=== PATIENT | female | born 1955 ===

== ENCOUNTER 2016-02-26 10:18 | Emergency (ER) | payer OTHER ==
[~2016-02-26] VITALS: Ht 160 cm; Wt 96.0 kg
[~2016-02-26 10:18] MED LIST: BACTDS PO; CEPH-443 PO; HYDR-906 PO; LEVO750T25 PO; NAPR-688 PO
[2016-02-26 10:38] VITALS: Ht 160 cm; Wt 96.0 kg
[2016-02-26] MEDS ORDERED: KETOROLAC 15 MG INJ IV STA (11:14)
[2016-02-26 12:01] LABS: BASOPHILS % 0.7 % (0.0-2.0); EOSINOPHILS % 0.6 % (0.0-7.0); HEMATOCRIT 39.4 % (37.0-47.0); HEMOGLOBIN 13.4 g/dl (12.0-16.0); LYMPHOCYTES # 2.7 10^3/ul (0.8-2.9); LYMPHOCYTES % 49.8 % (15.0-51.0); MEAN CORPUSCULAR HEMOGLOBIN 31.6 pg (29.0-33.0); MEAN CORPUSCULAR HGB CONC 34.1 g/dl (32.0-37.0); MEAN CORPUSCULAR VOLUME 92.7 fl (82.0-101.0); MEAN PLATELET VOLUME 8.6 fl (7.4-10.4); MONOCYTE # 0.4 10^3/ul (0.3-0.9); MONOCYTES % 7.8 % (0.0-11.0); NEUTROPHIL # 2.2 10^3/ul (1.6-7.5); NEUTROPHILS % 41.1 % (39.0-77.0); PLATELET COUNT 170 10^3/UL (140-440); RED BLOOD COUNT 4.25 10^6/ul (4.20-5.40); RED CELL DISTRIBUTION WIDTH 13.3 % (11.5-14.5); UNCORRECTED WBC 5.3 10^3/ul (4.8-10.8); WHITE BLOOD COUNT 5.3 10^3/ul (4.8-10.8)
[2016-02-26 12:04] LABS: CONDITION 1
[2016-02-26 12:15] LABS: ALBUMIN 3.9 g/dl (3.3-4.9)
[2016-02-26 12:16] LABS: POTASSIUM 4.2 mmol/L (3.5-5.1)
[2016-02-26 12:18] LABS: ADD UMIC YES; ALBUMIN/GLOBULIN RATIO 0.95; BILIRUBIN,INDIRECT 0.5 mg/dl (0-1.1); BILIRUBIN,TOTAL 0.5 mg/dl (0.2-1.3); CALCIUM 9.4 mg/dl (8.4-10.2); CREATININE 0.6 mg/dl (0.44-1.00); URINE BILIRUBIN (Dip) NEGATIVE (NEGATIVE); URINE BLOOD (Dip) 1+ (NEGATIVE); URINE COLOR LT. YELLOW (YELLOW); URINE GLUCOSE (Dip) NEGATIVE (NEGATIVE); URINE KETONES (Dip) NEGATIVE (NEGATIVE); URINE LEUKOCYTE ESTERASE (Dip) 1+ (NEGATIVE); URINE NITRITE (Dip) NEGATIVE (NEGATIVE); URINE TOTAL PROTEIN (Dip) NEGATIVE (NEGATIVE); URINE UROBILINOGEN (Dip) 0.2 E.U./dL (0.1-1.0)
[2016-02-26 12:43] LABS: URINE RBCS 0-2 /HPF (0)
--- NOTE | 2016-02-26 13:11 | RADRPT ---
PROCEDURE: CT Abdomen and Pelvis without contrast CLINICAL INDICATION: Abdominal pain TECHNIQUE: Transaxial images were obtained through the abdomen and pelvis on a multi-slice scanner without the intravenous contrast administration. no oral contrast had previously been given. Sagitt al and coronal re-formations were subsequently reconstructed. One or more of the following dose reduction techniques were used: - Automated exposure control. - Adjustment of the mA and/or kV according to patient size. - Use of iterative reconstruction technique. Radiation dose: CTDIvol = 21.70 mGy; DLP = 1369.85 mGy-cm. COMPARISON: No prior studies are available for comparison. FINDINGS: Lung bases: A ground-glass infiltrates are seen within the lung bases blurred by respiratory motion artifact. Liver: The liver is grossly normal in size but there is a large left lobe. No focal lesion is ident ified. Gallbladder: Surgical brittany are seen in the gallbladder fossa. Bile ducts: The intra and extrahepatic bile ducts are normal in caliber. Pancreas: Appears normal with no mass or inflammation evident. Spleen: Normal in size with no focal lesion. Adrenals: Normal with no mass identified. Kidneys, ureters and bladder: The kidneys are normal in size and there is no mass, pathological calc ification, or hydronephrosis evident. There is no perinephric stranding. The ureters are normal in c aliber and no ureteroliths are identified. The bladder appears unremarkable. Reproductive organs: Unremarkable. Stomach and bowel: A band is seen circumferentially about the superior gastric fundus but no cathete r or port is identified. Food debris is seen in the remaining stomach. Substantial stool is seen i n the right colon but there is no evidence of bowel obstruction or inflammation. Appendix: There are no findings to suggest appendicitis. Peritoneum: No free intraperitoneal fluid or air is identified. Aorta: Normal in caliber with no aneurysmal dilatation. IVC: Unremarkable. Lymph nodes: No pathologically enlarged nodes are identified. Osseous structures: The osseous elements appear intact. IMPRESSION: 1. The liver is grossly normal in size. There is a prominent left lobe. No focal lesion is identi fied. 2. Status post cholecystectomy with no bile duct dilatation evident of the pancreas appearing unrem arkable. 3. A circumferential band is seen about the proximal gastric fundus but no catheter or port is iden tified. Substantial stool is seen in the colon but there is no evidence of bowel obstruction or inf lammation. 4. No evidence of urinary outflow obstruction or ureterolithiasis. 5. Otherwise, unremarkable noncontrast enhance CT scan of the abdomen and pelvis. Physician Luiza Date Time Electronically viewed and signed by Keegan De Los Santos Physician on 02/26/2016 13:11 /
[2016-02-26] MEDS ORDERED: DOCU-144 PO (13:16)
--- NOTE | 2016-02-26 13:19 | ERD ---
ER Documentation Chief Complaint Date/Time DATE: 02/26/16 TIME: 1110 Chief Complaint Intermittent LLQ AP and L pelvic pain X 8 days, UTI symptoms. HPI 60-year-old female presents the emergency department complaining of left lower quadrant abdominal pain. She states that over the last 8 days, she has had a nonspecific left lower quadrant abdominal pain. Pain is non-provoked and spontaneous nonradiating and nonexertional. At its worst it is described as a 10/10. It is not colicky and it is associated with no hematuria, fevers, chills or any other symptoms including no nausea vomiting diarrhea or urinary symptoms. ROS All systems reviewed and are negative except as per history of present illness. Medications Home Meds Active Scripts Docusate Sodium* (Colace*) 100 Mg Capsule, 100 MG PO BID, #60 CAP Prov:KARYN ALDRICH 02/26/16 Discontinued Scripts Levofloxacin* (Levaquin*) 750 Mg Tablet, 750 MG PO DAILY for 7 Days, TAB Prov:ROJELIO BURCH PA-C 01/01/16 Cephalexin* (Keflex*) 500 Mg Capsule, 500 MG PO QID for 10 Days, CAP Prov:GABRIELLA GARCIA DO 12/28/15 Sulfamethoxazole-Trimethoprim* (Bactrim* DS) 800-160 Mg Tab, 1 TAB PO BID for 10 Days, TAB Prov:GABRIELLA GARCIA DO 12/28/15 Naproxen* (Naproxen*) 500 Mg Tablet, 500 MG PO BID Y for PAIN, #20 TAB Prov:GABRIELLA GARCIA DO 12/28/15 Hydrocodone/Acetaminophen ([place] 5-325 Tablet) 1 Each Tablet, 1 EACH PO Q6, #14 TAB Prov:GABRIELLA GARCIA DO 12/28/15 Allergies Allergies: Coded Allergies: No Known Allergy (Unverified , 02/26/16) PMhx/Soc History of Surgery: Yes (, GALL BLADDER, lap band surgery) Anesthesia Reaction: No Hx Neurological Disorder: No Hx Respiratory Disorders: No Hx Cardiac Disorders: No Hx Psychiatric Problems: No Hx Miscellaneous Medical Probl: No Hx Alcohol Use: No Hx Substance Use: No Hx Tobacco Use: No Smoking Status: Never smoker FmHx Noncontributory for chief complaint Physical Exam Vitals Vital Signs Date Time Temp Pulse Resp B/P Pulse Ox O2 Delivery O2 Flow Rate FiO2 02/26/16 10:38 98.1 75 18 123/69 99 Physical Exam GENERAL: The patient is well developed and appropriate for usual state of health in no apparent distress HEENT: Pupils equal, round, and reactive to light. EOMI. There is no scleral icterus. NECK: C-spine is soft and supple, there is no meningismus. There is no cervical lymphadenopathy. LUNGS: Clear to auscultation bilaterally. There are no rales, wheezes or rhonchi. HEART: Regular rate and rhythm, no murmurs, clicks, rubs or gallops. ABDOMEN: Soft, non-tender, non-distended. There are bowel sounds in all four quadrants. No rebound or guarding. EXTREMITIES: There is no peripheral cyanosis or edema. No focal swelling or erythema. NEURO: The patient moves all four extremities with 5/5 strength. Cranial nerves II - XII are intact. Normal gait. Alert and oriented SKIN: There is no apparent rash or petechiae. HEME/LYMPHATIC: There is no evidence of excessive bruising or lymphedema. PSYCHIATRIC: The patient does not appear anxious or depressed. Result Diagram: 02/26/16 1138 02/26/16 1138 Results 24 hrs Laboratory Tests Test 02/26/16 11:38 Alanine Aminotransferase (ALT/SGPT) 39IU/L Albumin 3.9g/dl Albumin/Globulin Ratio 0.95 Alkaline Phosphatase 125IU/L Anion Gap 15 Aspartate Amino Transf (AST/SGOT) 39IU/L Basophils # 0.010^3/ul Basophils % 0.7% Blood Urea Nitrogen 15mg/dl Calcium Level 9.4mg/dl Carbon Dioxide Level 27mmol/L Chloride Level 105mmol/L Creatinine 0.60mg/dl Direct Bilirubin 0.00mg/dl Eosinophils # 0.010^3/ul Eosinophils % 0.6% Globulin 4.10g/dl Glucose Level 94mg/dl Hematocrit 39.4% Hemoglobin 13.4g/dl Indirect Bilirubin 0.5mg/dl Lipase 192U/L Lymphocytes # 2.710^3/ul Lymphocytes % 49.8% Mean Corpuscular Hemoglobin 31.6pg Mean Corpuscular Hemoglobin Concent 34.1g/dl Mean Corpuscular Volume 92.7fl Mean Platelet Volume 8.6fl Monocytes # 0.410^3/ul Monocytes % 7.8% Neutrophils # 2.210^3/ul Neutrophils % 41.1% Nucleated Red Blood Cells # 0.010^3/ul Nucleated Red Blood Cells % 0.0/100WBC Platelet Count 11367^3/UL Potassium Level 4.2mmol/L Red Blood Count 4.2510^6/ul Red Cell Distribution Width 13.3% Sodium Level 143mmol/L Total Bilirubin 0.5mg/dl Total Protein 8.0g/dl Urine Bilirubin NEGATIVE Urine Clarity CLEAR Urine Color LT. YELLOW Urine Epithelial Cells OCCASIONAL Urine Glucose NEGATIVE% Urine Hemoglobin 1+ Urine Ketones NEGATIVE Urine Leukocyte Esterase 1+ Urine Microscopic RBC 0-2/HPF Urine Microscopic WBC 2-5/HPF Urine Nitrite NEGATIVE Urine Specific [place] >=1.030 Urine Total Protein NEGATIVE Urine Urobilinogen 0.2 E.U./dL Urine pH 5.5 White Blood Count 5.310^3/ul Current Medications Medications (Trade) Dose Ordered Sig/Iliana Route PRN Reason Start Time Stop Time Status Last Admin Dose Admin Ketorolac Tromethamine (Toradol) 15 mg ONCE STAT IV 02/26/16 11:14 02/26/16 11:15 DC 02/26/16 11:40 Procedures/MDM Patient was taken to a room, seen and evaluated. Comfort measures were initiated. Diagnostic tests were ordered and reviewed. 3 LEAD RHYTHM STRIP: Normal sinus rhythm without ectopy RADIOLOGY: reviewed with the radiologist REEVALUATION: Serial examinations of the abdomen remained benign and she looked well in appearance MEDICAL DECISION MAKING: Patient presents with abdominal pain of uncertain etiology. Differential diagnosis considered includes appendicitis, diverticulitis, cholecystitis and other intra-abdominal medical and surgical concerns. I have reviewed the patients lab studies and imaging as well as multiple examinations of the abdomen. At this time, the cause of her discomfort is still somewhat unclear. Patient at this point shows no evidence of severe acute infection, mass, other intra- abdominal concerns. Overall, she seems well after supportive management and now seems to be appropriate for outpatient care. Departure Diagnosis: Primary Impression: Abdominal pain Condition: Stable Patient Instructions: Abdominal Pain Additional Instructions: See your doctor for follow-up as discussed. Take a copy of your test results, if appropriate, to this follow-up visit. See your doctor or return here if your symptoms do not improve as expected. At any time, please return to the emergency department for any change or worsening in her symptoms. KARYN ALDRICH Feb 26, 2016 13:19
[2016-02-26 13:40] VITALS: BP 137/83; PULSE 67; RESP 18; TEMP 98.1
== END 2016-02-26 13:41 | disposition home or self-care (01) ==
LOC: E/R 10:18
DX: R10.32 Left lower quadrant pain (principal)
CPT/HCPCS: 36415; 74176; 80053; 81001; 83690; 85025; 96374; J1885; Z7502; 81003